=== PATIENT | female | born 1970 | race American Indian/Alaskan Native ===

== ENCOUNTER 2018-03-25 09:33 | Day surgery (SDC) | payer OTHER ==
--- NOTE | 2018-03-25 10:40 | Anesthesia Consultation ---
Anesthesia Consult and Med Hx Date of service: 03/25/18 - Airway Anesthetic Teeth Evaluation: Dentures ROM Head & Neck: Adequate Mental/Hyoid Distance: Adequate Mallampati Class: Class I Intubation Access Assessment: Good - Pulmonary Exam CTA: Yes - Cardiac Exam Cardiac Exam: RRR - Pre-Operative Health Status ASA Pre-Surgery Classification: ASA2 Proposed Anesthetic Plan: General - Pulmonary Hx Smoking: Yes (1-2 cigs/day x10yrs) Hx Respiratory Symptoms: No SOB: No Hx Sleep Apnea: No - Cardiovascular System Hx Hypertension: Yes Hx Heart Attack/AMI: No - Central Nervous System Hx Seizures: No CVA: No - Gastrointestinal Hx Gastroesophageal Reflux Disease: No - Endocrine Hx Renal Disease: Yes (reports hx CKD but normal renal function at recent PCP visit) Hx Liver Disease: No Hx Insulin Dependent Diabetes: No Hx Thyroid Disease: No - Other Systems Hx Alcohol Use: Yes (Occas) - Additional Comments Anesthesia Medical History Comments: No prior anesthetic complications. Took amlodipine, HCTZ, lisinopril today.
[2018-03-25] MEDS ORDERED: SUBLIMAZE IV PRN (10:41)
--- NOTE | 2018-03-25 10:41 | Anesthesia Day of Surgery ---
Anesthesia Day of Surgery - Day of Surgery Patient Examined: Yes Patient H&P Reviewed: Yes Patient is NPO: Yes
[2018-03-25] MEDS ORDERED: DIPRIVAN 10 MG/ML IV ONE (10:47)
[2018-03-25] MEDS ORDERED: XYLOCAINE MPF 2% ONE (10:47)
[2018-03-25] MEDS ORDERED: DILAUDID ONE (10:48)
[2018-03-25] MEDS ORDERED: LACTATED RINGERS 1,000 ML IV SCH ×2 (11:00→12:00)
[2018-03-25] MEDS ORDERED: VERSED IV NR (11:00)
[2018-03-25] MEDS ORDERED: ZOFRAN IV PRN (11:20)
[2018-03-25] MEDS ORDERED: DILAUDID IV PRN (11:20)
[2018-03-25] MEDS ORDERED: DEMEROL IV PRN (11:20)
[2018-03-25] MEDS ORDERED: NACL 0.9% IR ONE (11:40)
[2018-03-25] MEDS ORDERED: DECADRON ONE (12:13)
[2018-03-25] MEDS ORDERED: ZOFRAN ONE (12:14)
--- NOTE | 2018-03-25 13:31 | Operative Report ---
Operative Report Operative Report: Preoperative diagnosis: Dysfunctional uterine bleeding refractory to medical therapy. Postoperative diagnosis: same Procedure: 1. D&C. 2. Endometrial ablation with Novasure. Surgeon: Dr. Shrestha Glass Scullion: none Anesthesia: general EBL: none IVF: RL 1 liter Complications: none Procedure details: The risks, benefits, alternatives of the procedure were discussed in detail with the patient which included but not limited to risk of infection, hemorrhage requiring blood transfusion, uterine perforation. The patient expressed understanding, her questions were answered, and she gave informed consent. The patient was taken to the operating room with an IV fluid infusing and a lactate. In the operating room, she was placed in a dorsal supine position and given general anesthesia. She was then placed on the stirrups in a dorsal lithotomy position. The perineum, vagina, and cervix were washed and she was prepared and draped in usual sterile fashion. Examination under anesthesia revealed normal external genitalia, vagina, and cervix. No gross lesions seen. The uterus was 9 weeks size, mobile and anteverted. Adnexa were nonpalpable. A weighted speculum was placed in the posterior vaginal wall. The anterior lip of the cervix was grasped with a single-tooth tenaculum. The cervical os was dilated. A gentle curettage was performed to thin the lining of the uterus. Endometrial ablation was performed using NovaSure. The Novasure device was introduced into the uterine cavity and opened. The uterine cavity length was assessed to be 4 cm, width 3.5 cm. The ablation was done using a power of 77 [place] over 1 minute and 39 seconds. The procedure was completed without any difficulty and the probe was removed from the uterus. The patient tolerated the procedure well. The counts of laps, needles, sponges, and instruments were correct 2. She was awakened from the anesthesia and taken to the recovery room in stable condition.
[2018-03-25] MEDS ORDERED: BENADRYL PO ONE (15:00)
[2018-03-25 18:30] VITALS: BP 115/65
== END 2018-03-25 14:32 | disposition home or self-care (01) ==
LOC: OR 09:33
PROVIDERS: ATTEND Obstetrics & Gynecology
DX: N93.8 Other specified abnormal uterine and vaginal bleeding (principal); N92.0 Excessive and frequent menstruation with regular cycle; F17.210 Nicotine dependence, cigarettes, uncomplicated; I10 Essential (primary) hypertension; Z98.51 Tubal ligation status; Z72.89 Other problems related to lifestyle; Z98.890 Other specified postprocedural states; Z79.899 Other long term (current) drug therapy; Z79.01 Long term (current) use of anticoagulants
CPT/HCPCS: 58353; 81025; 88305; A4217; J1100; J1170; J2405; J2704; J7120

== ENCOUNTER 2018-09-03 17:24 | Emergency (ER) | payer OTHER ==
[2018-09-03] MEDS ORDERED: BOOSTRIX IM ONE ×2 (17:30→19:39)
--- NOTE | 2018-09-03 17:30 | Emergency Department Report ---
Blank Doc - Documentation Documentation: This is a 47-year-old female that presents with left hand lac that happened to day. Is not UTD with tetanus. This initial assessment diagnostic orders/clinical plan/treatment(s) is/are subject to change based on patient's health status, clinical progression and re- assessment by fellow clinical providers in the ED. Further treatment and workup at subsequent clinical providers discretion. Patient/guardians urged not to elope from ED s their condition may be serious if not clinically assessed and managed. Initial orders include: 1-Patient sent to [facility] for further evaluation and treatment
[2018-09-03 17:31] VITALS: BP 141/87
[2018-09-03] MEDS ORDERED: LET TOPICAL TP ONE ×2 (19:51→19:52)
--- NOTE | 2018-09-03 21:24 | Emergency Department Report ---
ED Laceration HPI - HPI Chief Complaint: Wound/Laceration Stated Complaint: CUT LT HAND AT WORK Time Seen by Provider: 09/03/18 17:28 Laceration Symptoms: Yes Pain, No Foreign Body Sensation, No Numbness, No Weakness Other History: pt cut left dorsal hand non sheet metal plate at work bleeding controlled with direct pressure pain in 3/ no nerve tendon or muscle damage. ED Review of Systems ROS: Stated complaint: CUT LT HAND AT WORK Other details as noted in HPI Constitutional: denies: chills, fever Eyes: denies: eye pain, eye discharge, vision change ENT: denies: ear pain, throat pain Respiratory: denies: cough, shortness of breath, wheezing Cardiovascular: denies: chest pain, palpitations Endocrine: no symptoms reported Gastrointestinal: denies: abdominal pain, nausea, diarrhea Genitourinary: denies: urgency, dysuria, discharge Musculoskeletal: denies: back pain, joint swelling, arthralgia Skin: other (laceration left hand ). denies: rash, lesions Neurological: denies: headache, weakness, paresthesias Psychiatric: denies: anxiety, depression Hematological/Lymphatic: denies: easy bleeding, easy bruising ED Past Medical Hx - Past Medical History Previous Medical History?: Yes Hx Hypertension: Yes Hx Heart Attack/AMI: No Hx Liver Disease: No Hx Renal Disease: Yes (reports hx CKD but normal renal function at recent PCP visit) Hx Seizures: No - Surgical History Past Surgical History?: Yes Additional Surgical History: tubal. endometrial ablasion - Social History Smoking Status: Current Every Day Smoker Substance Use Type: None - Medications Home Medications: Home Medications Medication Instructions Recorded Confirmed Last Taken Type Ibuprofen [Motrin] 800 mg PO Q8HR PRN #20 tablet 04/01/16 03/25/18 03/24/18 Rx Amoxicillin [Amoxicillin Chew] 500 mg PO Q8H 03/20/18 03/25/18 03/24/18 22:00 History Lisinopril [Zestril TAB] 30 mg PO DAILY 03/20/18 03/25/18 03/25/18 07:00 History amLODIPine [Norvasc] 10 mg PO DAILY 03/20/18 03/25/18 03/25/18 07:00 History hydroCHLOROthiazide 12.5 mg PO DAILY 03/20/18 03/25/18 03/25/18 07:00 History [Hydrochlorothiazide] Tramadol HCl [Ultram] 50 mg PO Q6H PRN #12 tablet 09/03/18 Unknown Rx cephALEXin [Keflex] 500 mg PO Q8HR 10 Days #30 cap 09/03/18 Unknown Rx Laceration Physical Exam - Exam General: Vital signs noted. No distress. Alert and acting appropriately. Wound Length (cm): 3 Laceration Location: Upper Extremity (left dorsal hand) Laceration Exam: Yes Normal Distal CMS, No Foreign Body, No Exposed Tendon, Vessel, or Nerve, No Tendon Injury ED Course Vital Signs 09/03/18 17:28 Temperature 98.2 F Pulse Rate 61 Respiratory 18 Rate Blood Pressure 141/87 O2 Sat by Pulse 100 Oximetry - Laceration /Wound Repair Left Dorsal Hand Wound Location: upper extremity Wound Length (cm): 3 Wound's Depth, Shape: superficial Wound Explored: clean Irrigated w/ Saline (ccs): 20 Betadine Prep?: Yes Anesthesia: 1% Lidocaine Volume Anesthetic (ccs): 1 Wound Debrided: minimal Wound Repaired With: Dermabond Progress: left dorsal hand superficial laceration 3 cm no nerve tendon or muscle damage rom intact unrestricted, rom intact wound cleaned with sterile saline solution anesthesia with lidocaine topical 1 cc, closed with dermabond and steridsrips edges well approximated all bleeding is controlled CMS intact pt tolerated procedure with minimal distress, pt given wound care instructions verbalized understanding of same. ED Medical Decision Making - Medical Decision Making lacerat left dorsal hand versus sheet metal no foreign bodies no nerve tendon or muscle damage wound closed with dermabond see procedure note pt tolerated with minimal distress , pt given tetanus IM , plan dc to home with rx for keflex, ultram follow up with pcp in 2 days for wound check and return if need for symptoms o infection pt verbalized agreement and understanding of discharge plan. Critical care attestation.: If time is entered above; I have spent that time in minutes in the direct care of this critically ill patient, excluding procedure time. ED Disposition Clinical Impression: Laceration of hand Qualifiers: Encounter type: initial encounter Foreign body presence: without foreign body Laterality: left Qualified Code(s): S61.412A - Laceration without foreign body of left hand, initial encounter Disposition: DC-01 TO HOME OR SELFCARE Is pt being admited?: No Does the pt Need Aspirin: No Condition: Stable Instructions: Laceration (ED), Skin Adhesive Care (ED) Prescriptions: cephALEXin [Keflex] 500 mg PO Q8HR 10 Days #30 cap Tramadol HCl [Ultram] 50 mg PO Q6H PRN #12 tablet PRN Reason: pain Referrals: TUNDE GONZALEZ [Primary Care Provider] - 3-5 Days [facility] [Outside] - 3-5 Days Forms: Work/School Release Form(ED) Time of Disposition: 21:28
== END 2018-09-03 21:35 | disposition home or self-care (01) ==
LOC: ED 17:24
DX: S61.412A Laceration without foreign body of left hand, initial encounter (principal); I10 Essential (primary) hypertension; F17.200 Nicotine dependence, unspecified, uncomplicated; Z98.51 Tubal ligation status; Z79.899 Other long term (current) drug therapy; W45.8XXA Other foreign body or object entering through skin, initial encounter; Y93.89 Activity, other specified; Y99.0 Civilian activity done for income or pay; Y92.69 Other specified industrial and construction area as the place of occurrence of the external cause
CPT/HCPCS: 90471; 90715; 99282